=== PATIENT | female | born 1975 | race African-American/Black ===

== ENCOUNTER 2020-09-04 10:16 | Emergency (ER) | payer OTHER ==
[~2020-09-04] VITALS: Ht 162.6 cm; Wt 65.8 kg
--- NOTE | ~2020-09-04 | EMS ---
[facility] [address] [place] [address] EMS Patient Care Report Name: JAY CASTRO Room #: DEP GALINA Mcmanus#: [id number] Admission: 09/04/20 Attend Phys: Discharge: 09/04/20 Date of : 77 Report #: [id number] THIS REPORT FOR: //name// Report Transmitted: 09/07/2020 13:22 EMS Care Summary [place], [place]/[facility] Incident [phone] @ 09/04/2020 09:12 Incident [address] [place] [address] Patient JAY CASTRO Female, 45 Years 1975 Patient Address [address] [place] [address] Patient History Dermatitus (Eczema), Patient Allergies No known allergies, Patient Medications Benadryl, Chief Complaint WEAKNESS Disposition Transported No Lights/[place] Dispatch Reason Sick Person Transported To [facility] Narrative M41 WAS DISPATCHED TO A RESIDENCE ON A SICK. ON ARRIVAL PT IS FOUND SITTING UPRIGHT ON THE EDGE OF HER BED. PT IS ALERT AND ORIENTED GCS OF 15 AND IN NO [facility] [address] [place] [address] EMS Patient Care Report Name: JAY CASTRO Room #: DEP [place]#: [id number] Admission: 09/04/20 Attend Phys: Discharge: 09/04/20 Date of : 77 Report #: [id number] OBVIOUS SIGNS OF DISTRESS. PT STATES SHE IS FEELING WEAK AND DIZZY SINCE SHE WOKE UP AT 0800. PT STATES SHE IS CONCERNED THAT IT MAY BE DUE TO A CHANGE IN HER DIET AND WANTS TO GO TO THE ER FOR EVALUATION. PT IS ABLE TO WALK TO THE AMBULANCE WITHOUT EMS ASSISTANCE. VITALS MONITORED EN ROUTE WITH NO CHANGES IN PT CONDITION. Initial Vitals @09:52P: 105,R: 18,BP: 162/87,Pain: 0/10,GCS: 15,CO: 3,SpO2: 96,Revised Trauma: 12, @09:32P: 110,R: 18,BP: 152/101,Pain: 0/10,GCS: 15,Glucose: 80,CO: 3,SpO2: 98,Revised Trauma: 12, Assessments @09:30MENTAL:Person Oriented,Time Oriented,Event Oriented,Place Oriented,SKIN:HEENT:Head/Face: No Abnormalities,Neck/Airway: No Abnormalities,LUNG SOUNDS:General: Nausea,ABDOMEN:General: Nausea,PELVIS//GI:No Abnormalities,EXTREMITIES:Left Arm: No Abnormalities,Right Arm: No Abnormalities,Left Leg: No Abnormalities,Right Leg: No Abnormalities,PULSE:NEURO:No Abnormalities, Impression Generalized Weakness Procedures @09:30ALS AssessmentResponse: UnchangedSucceeded Timeline 09:10,Call Received 09:10,Dispatch Notified 09:12,Dispatched 09:12,En Route 09:28,On Scene 09:30,At Patient 09:30,ALS Assessment,Response: UnchangedSucceeded, 09:32,BP: 152/101 M,PULSE: 110,RR: 18 R,SPO2: 98 Ox,ETCO2: ,B,PAIN: 0,GCS: 15, 09:52,BP: 162/87 M,PULSE: 105,RR: 18 R,SPO2: 96 Ox,ETCO2: ,BG: ,PAIN: 0,GCS: 15, 09:53,Depart Scene 10:16,At Destination 10:26,Call Closed Disclaimer v1.1 Copyright 2020 [employer] This EMS Care Summary contains data elements from the applicable legal record (which may be displayed differently). It is designed to provide pertinent [facility] [address] [place] [address] EMS Patient Care Report Name: JAY CASTRO [id number] Admission: 09/04/20 Attend Phys: Discharge: 09/04/20 Date of : 77 Report #: [id number] information for the following purposes: continuity of care, clinical quality, and state data reporting. The complete legal record is available to ED staff and administrators of the receiving hospital in [employer] Patient Tracker. All data is provided "as is."
[2020-09-04 11:29] LABS: URINE BILIRUBIN NEGATIVE (Negative); URINE BLOOD 1+ (Negative); URINE CLARITY CLEAR; URINE COLOR YELLOW; URINE GLUCOSE-RANDOM* NEGATIVE (Negative); URINE KETONES 2+ (Negative); URINE LEUKOCYTES-REFLEX NEGATIVE (Negative); URINE NITRITE-REFLEX NEGATIVE (Negative); URINE PROTEIN (DIPSTICK) NEGATIVE (Negative); URINE SPECIFIC GRAVITY <= 1.005 (1.005-1.035); URINE UROBILINOGEN 0.2 E.U./dl (0.2-1.0)
[2020-09-04 11:39] LABS: ABSOLUTE NEUTROPHILS 2.9 thou/uL (1.4-8.2); BASOPHILS 0.7 % (0.0-2.0); EOSINOPHILS 1.2 % (0.0-3.0); HEMOGLOBIN 14.4 gm/dL (12.0-15.0); LYMPHOCYTES 29.4 % (24.0-44.0); MCH 29.9 pg (26.0-34.0); MCHC 34.4 g/dL (28.0-37.0); MCV 86.9 fL (80.0-100.0); MONOCYTES 7.8 % (1.0-8.0); PLATELET COUNT 292 thou/uL (150-400); POLYS 60.9 % (36.0-66.0); RBC 4.83 mil/uL (4.20-5.00); RDW 13.1 % (10.5-14.5); WBC 4.8 thou/uL (4.0-11.0)
[2020-09-04 11:47] LABS: BACTERIA-REFLEX 1-9 Few /HPF (None Seen); CASTS None Seen /LPF (None Seen); CRYSTALS None Seen /LPF (None Seen); SQUAMOUS 4-10 Moderate /LPF (0-3); URINE RBC 1-2 Rare /HPF (NONE SEEN); URINE WBC-REFLEX 0-5 Rare /HPF (0-5)
[2020-09-04 11:48] LABS: CALCIUM 9.2 mg/dL (8.5-10.1); CREATININE 0.8 mg/dL (0.6-1.0); POTASSIUM 4.2 mmol/L (3.5-5.1)
[2020-09-04 11:54] LABS: TOTAL BILIRUBIN 0.5 mg/dL (0.2-1.0); TOTAL PROTEIN 7.9 g/dL (6.4-8.2)
[2020-09-04] MEDS ORDERED: MECLIZINE HCL25 MG PO (14:15)
[2020-09-04 14:59] VITALS: BP 130/83
--- NOTE | 2020-09-05 10:36 | EKG ---
[place] [address] [facility] [place] [address] ELECTROCARDIOGRAM REPORT Name: JAY CASTRO Room #: DEP [facility]#: [id number] Admission: 09/04/20 Attend Phys: Discharge: 09/04/20 Date of : 77 Report #: [id number] [facility] ED Test Date: 2020-09-04 Test Time: 10:55:14 Pat Name: JAY CASTRO Department: Room: Gender: F [employer] Supervisor: danna : 1975 Requested By: David Drake Order Number: [id number] MD: Alden Cerda Measurements Intervals [place] Rate: 93 P: 71 [place]: 175 QRS: 58 QRSD: 79 T: 30 QT: 353 QTc: 440 Interpretive Statements Sinus rhythm No significant abnormality No previous ECG available for comparison Electronically Signed On 09-05-2020 10:36:22 CDT by Alden Cerda [email or web address] <ELECTRONICALLY SIGNED> By: Alden Cerda MD, [facility] 09/05/20 1036 1055 1055 Alden Cerda MD, FACC /EPI
== END 2020-09-04 14:59 | disposition home or self-care (01) ==
LOC: ER 10:16
PROVIDERS: Emergency Medicine
DX: R42 Dizziness and giddiness (principal); I10 Essential (primary) hypertension; Z91.09 Other allergy status, other than to drugs and biological substances